=== PATIENT | male | born 1940 | race Caucasian/White ===

== ENCOUNTER 2017-05-21 07:16 | Day surgery (SDC) | payer MEDICARE, BC ==
[2017-05-21] MEDS ORDERED: Lactated Ringers 1,000 ML IV SCH (08:00)
[2017-05-21] MEDS ORDERED: fentaNYL 100 MCG/2 ML SDV ONE (08:20)
[2017-05-21] MEDS ORDERED: Propofol 200 MG/20 ML SDV ONE (08:20)
[2017-05-21 09:59] VITALS: BP 107/44
--- NOTE | 2017-05-21 13:00 | OR ---
PREOPERATIVE DIAGNOSIS: History of polyps. POSTOPERATIVE DIAGNOSIS: Tiny hepatic flexure polyp, 85 cm removed. PROCEDURE PROPOSED: Total flexible colonoscopy. PROCEDURE DONE: Total flexible colonoscopy with polypectomy x1. INDICATIONS: This is a 77-year-old gentleman who comes in for colonic surveillance due to history of polyps. He had a tubular adenoma removed 5 years ago. He denies any family history of colon cancer. TECHNIQUE: The patient was brought to the endoscopy suite, placed in left lateral decubitus position. He was sedated with propofol per [employer]. The flexible video colonoscope was then passed transanally and under visualization advanced to the cecum without difficulty. Examination revealed a very tiny polyp in the hepatic flexure area removed with 2 bites of the cold biopsy forceps and submitted for pathologic examination. The transverse, descending, sigmoid and rectal colon were otherwise unremarkable. There was no diverticulosis or other polyps or other abnormalities and the scope was then withdrawn. The patient tolerated the procedure well. FINAL IMPRESSION: 1. Tiny polyp at 85 cm removed. 2. History of prior polyps. PLAN: He will be sent a letter with the pathology report. I felt that he should consider 1 more examination in 5 years at which point he would be 82 and then I feel he does not need after that. SCM: 05/21/2017 09:22:01 MODL: 05/21/2017 12:48:59 /[id number]
--- NOTE | 2017-05-27 10:04 | LETTER ---
05/27/2017 Joanne Sofia RE: JOANNE SOFIA : 1940 Dear Joanne: The polyp removed from your colon was a benign tubular adenoma. There were no worrisome changes within this polyp. Based on your age, I feel that you do not need any future exams. If you have any further questions, feel free to call. Respectfully,
== END 2017-05-21 10:30 | disposition home or self-care (01) ==
LOC: VM.SDS 07:16
PROVIDERS: ATTEND Surgery
DX: Z12.11 Encounter for screening for malignant neoplasm of colon (principal); D12.3 Benign neoplasm of transverse colon; E11.9 Type 2 diabetes mellitus without complications; I10 Essential (primary) hypertension; G47.33 Obstructive sleep apnea (adult) (pediatric); E66.01 Morbid (severe) obesity due to excess calories; I25.10 Atherosclerotic heart disease of native coronary artery without angina pectoris; Z86.010 Personal history of colon polyps; Z98.84 Bariatric surgery status; Z79.82 Long term (current) use of aspirin; Z79.899 Other long term (current) drug therapy; Z68.38 Body mass index [BMI] 38.0-38.9, adult; Z95.1 Presence of aortocoronary bypass graft; Z90.49 Acquired absence of other specified parts of digestive tract
CPT/HCPCS: 00810; 45380; J2704; J3010; J7120; 88305